=== PATIENT | female | born 1990 | race Caucasian/White ===

== ENCOUNTER 2018-12-21 15:18 | Emergency (ER) | payer BC ==
[2018-12-21] MEDS: CYCLOBENZAPRINE 10 MG TAB PO (18:38)
[2018-12-21] MEDS: KETOROLAC 60 MG INJ IM (18:39)
[2018-12-21 18:45] LABS: URINE BLOOD (Dip) POC Negative (NEGATIVE); URINE GLUCOSE (Dip) POC Negative (NEGATIVE); URINE KETONES (Dip) POC Negative (NEGATIVE); URINE LEUKOCYTE EST (Dip) POC Negative (NEGATIVE); URINE NITRITE (Dip) POC Negative (NEGATIVE); URINE TOTAL PROTEIN POC Negative (NEGATIVE)
== END 2018-12-21 19:07 | disposition home or self-care (01) ==
LOC: FTE 15:18
DX: M76.31 Iliotibial band syndrome, right leg (principal); J45.909 Unspecified asthma, uncomplicated
CPT/HCPCS: 81003; 81025; 96372; 99284-25

== ENCOUNTER → 2019-04-28 | Emergency (ER) | payer BC ==
[2019-04-28] MEDS: KETOROLAC 30 MG INJ IM (11:18)
[2019-04-28] MEDS: ACETAMINOPHEN 325 MG TAB PO (11:20)
== END | disposition home or self-care (01) ==
LOC: FTE 09:59
DX: S93.602A Unspecified sprain of left foot, initial encounter (principal); J45.909 Unspecified asthma, uncomplicated; W10.9XXA Fall (on) (from) unspecified stairs and steps, initial encounter; Y92.9 Unspecified place or not applicable
CPT/HCPCS: 73630; 73630-LT; 81025; 99283-25